=== PATIENT | female | born 1995 | race Caucasian/White ===

== ENCOUNTER 2016-11-24 18:37 | Emergency (ER) | payer MEDICAID ==
[~2016-11-24] VITALS: Ht 167.6 cm; Wt 55.0 kg
[2016-11-24 19:47] LABS: CALCIUM 8.2 mg/dL (8.5-10.1); CARBON DIOXIDE 29.2 mmol/L (21-32); CHLORIDE SERUM 104 mmol/L (98-107); CREATININE SERUM 0.6 mg/dL (0.6-1.0); GFR1 > 60 mL/min; GLUCOSE SERUM 94 mg/dL (74-106); POTASSIUM SERUM 4.1 mmol/L (3.5-5.1); SODIUM SERUM 137 mmol/L (136-145)
[2016-11-24 20:50] VITALS: BP 117/62
== END 2016-11-24 20:50 | disposition home or self-care (01) ==
LOC: ED 18:37
PROVIDERS: Emergency Medicine
DX: O21.0 Mild hyperemesis gravidarum (principal); O23.41 Unspecified infection of urinary tract in pregnancy, first trimester; G43.909 Migraine, unspecified, not intractable, without status migrainosus; J45.909 Unspecified asthma, uncomplicated; Z3A.10 10 weeks gestation of pregnancy
CPT/HCPCS: J2405; J7030

== ENCOUNTER 2016-12-25 10:19 | Emergency (ER) | payer MEDICAID ==
[~2016-12-25] VITALS: Ht 157.5 cm; Wt 54.5 kg
[2016-12-25 12:01] VITALS: BP 120/87
== END 2016-12-25 12:01 | disposition home or self-care (01) ==
LOC: ED 10:19
DX: O20.9 Hemorrhage in early pregnancy, unspecified (principal); O23.42 Unspecified infection of urinary tract in pregnancy, second trimester; Z3A.15 15 weeks gestation of pregnancy; J45.909 Unspecified asthma, uncomplicated; Z79.899 Other long term (current) drug therapy

== ENCOUNTER 2017-08-27 10:44 | Emergency (ER) | payer MEDICAID ==
[~2017-08-27] VITALS: Ht 157.5 cm; Wt 60.8 kg
[2017-08-27 11:00] VITALS: Ht 157.5 cm; Wt 60.8 kg
[2017-08-27 12:42] LABS: microscopic required? YES; urine erythrocyte 2+ (NEGATIVE)
[2017-08-27 12:53] LABS: AMPHETAMINE QUAL UR NONE DETECTED (NEG <=1000)
[2017-08-27 13:09] LABS: BASOPHIL % 0.1 % (0-2); PLATELET COUNT 198 x10^3mcL (130-400); RED CELL DISTRIBUTION WIDTH 12.8 % (11.5-14.5)
[2017-08-27 14:48] VITALS: BP 120/73
== END 2017-08-27 14:48 | disposition home or self-care (01) ==
LOC: ED 10:44
PROVIDERS: Emergency Medicine
DX: O26.891 Other specified pregnancy related conditions, first trimester (principal); R10.30 Lower abdominal pain, unspecified; M54.5 Low back pain; J45.909 Unspecified asthma, uncomplicated; G43.909 Migraine, unspecified, not intractable, without status migrainosus
CPT/HCPCS: 36415

== ENCOUNTER 2017-09-12 20:16 | Emergency (ER) | payer MEDICAID ==
[~2017-09-12] VITALS: Ht 157.5 cm; Wt 58.7 kg
[2017-09-12 20:28] VITALS: BP 124/70; Ht 157.5 cm; Wt 58.7 kg
[2017-09-12 21:05] LABS: UA SPECIFIC GRAVITY <=1.005 (1.005-1.035); microscopic required? YES; urine erythrocyte NEGATIVE (NEGATIVE)
[2017-09-12 21:09] LABS: PLATELET COUNT 283 x10^3mcL (130-400); RED CELL DISTRIBUTION WIDTH 12.1 % (11.5-14.5)
[2017-09-12 21:11] LABS: BASOPHIL % 4.1 % (0-2)
== END 2017-09-12 22:08 | disposition home or self-care (01) ==
LOC: ED 20:16
PROVIDERS: Emergency Medicine
DX: O23.41 Unspecified infection of urinary tract in pregnancy, first trimester (principal); O20.0 Threatened abortion; Z3A.08 8 weeks gestation of pregnancy
CPT/HCPCS: 36415

== ENCOUNTER 2017-10-10 11:54 | Emergency (ER) | payer MEDICAID ==
[~2017-10-10] VITALS: Ht 160 cm; Wt 58.0 kg
[2017-10-10 12:04] VITALS: Ht 160 cm; Wt 58.0 kg
[2017-10-10 13:57] VITALS: BP 109/56
== END 2017-10-10 13:57 | disposition home or self-care (01) ==
LOC: ED 11:54
DX: O34.81 Maternal care for other abnormalities of pelvic organs, first trimester (principal); J45.909 Unspecified asthma, uncomplicated; G43.909 Migraine, unspecified, not intractable, without status migrainosus; Z3A.12 12 weeks gestation of pregnancy